=== PATIENT | male | born 1975 | race Caucasian/White ===

== ENCOUNTER 2016-09-15 08:55 | Emergency (ER) | payer SELFPAY ==
[~2016-09-15] VITALS: Ht 177.8 cm; Wt 90.0 kg
[~2016-09-15 08:55] MED LIST: AMLO10TA2 PO; BACT800T5 PO; GABA300C5 PO; GLUC1000 PO; LISI-515 PO; OMEP20TA PO; VENTAER INH; VITA250T25 PO
[2016-09-15 09:11] VITALS: BP 145/94; PULSE 78; RESP 18; TEMP 98.5; O2SAT 99
--- NOTE | 2016-09-16 16:28 | EKG ---
Date Performed: 09/15/2016 Time Performed: 08:56:42 PTAGE: 41 years EKG: Sinus rhythm Since previous tracing, no significant change noted Normal ECG PREVIOUS TRACING : 04/26/2016 05.13 DOCTOR: Marvin Quinonez Interpretating Date/Time 09/16/2016 16:27:08
== END 2016-09-15 09:34 | disposition left against medical advice (07) ==
LOC: PHED 08:55
DX: R68.89 Other general symptoms and signs (principal)
CPT/HCPCS: 93005; 99281

== ENCOUNTER 2017-08-04 10:05 | Emergency (ER) | payer OTHER ==
[~2017-08-04] VITALS: Ht 177.8 cm; Wt 93.0 kg
[~2017-08-04 10:05] MED LIST changes: -OMEP20TA PO; +OMEP20TA93 PO
[2017-08-04 10:11] VITALS: BP 185/102; PULSE 107; RESP 16; TEMP 98.4; O2SAT 95
[2017-08-04 10:17] VITALS: BP 185/102; PULSE 107; RESP 16; TEMP 98.4; O2SAT 95
[2017-08-04] MEDS ORDERED: TRAM50TA PO (11:28)
[2017-08-04] MEDS ORDERED: IBUP1TAB7 PO (11:28)
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
== END 2017-08-04 11:37 | disposition home or self-care (01) ==
LOC: PHEFT 10:05
DX: S42.92XD Fracture of left shoulder girdle, part unspecified, subsequent encounter for fracture with routine healing (principal); J45.909 Unspecified asthma, uncomplicated; E78.00 Pure hypercholesterolemia, unspecified; E11.9 Type 2 diabetes mellitus without complications; I10 Essential (primary) hypertension; F17.210 Nicotine dependence, cigarettes, uncomplicated; V89.2XXA Person injured in unspecified motor-vehicle accident, traffic, initial encounter
CPT/HCPCS: 99283

== ENCOUNTER 2017-09-04 10:33 | Emergency (ER) | payer MEDICAID ==
[~2017-09-04] VITALS: Ht 177.8 cm; Wt 91.0 kg
[~2017-09-04 10:33] MED LIST changes: -AMLO10TA2 PO; -BACT800T5 PO; -GABA300C5 PO; -GLUC1000 PO; +IBUP1TAB7 PO; -LISI-515 PO; -OMEP20TA93 PO; +TRAM50TA PO; -VENTAER INH; -VITA250T25 PO
[2017-09-04 10:35] VITALS: BP 187/115; PULSE 120; RESP 16; TEMP 98.3; O2SAT 96
[2017-09-04] MEDS ORDERED: SODIUM CHLOR 0.9% 1000 ML INJ 1,000 ML IV SCH (10:45)
[2017-09-04] MEDS ORDERED: MORPHINE SULFATE 4 MG/ML INJ IV PUSH ONE (10:45)
[2017-09-04] MEDS ORDERED: SODIUM CHLORIDE 0.9% FLUSH 10 ML FLUSH IV FLUSH PRN (10:45)
[2017-09-04] MEDS ORDERED: ONDANSETRON HCL 4 MG/2 ML VIAL IVP ONE (10:45)
[2017-09-04] MEDS ORDERED: FAMOTIDINE 20 MG/2 ML VIAL IV PUSH ONE (10:45)
--- NOTE | 2017-09-04 10:50 | PD ---
HPI Chief Complaint: Abdominal Pain Time Seen by Provider: 10:40 Travel History International Travel<30 days: No Contact w/Intl Traveler<30days: No Traveled to known affect area: No History of Present Illness HPI The patient is a 42-year-old male who presents emergency department for abdominal pain of 3 days' duration. The abdominal pain is located across the upper aspect of the abdomen, nonradiating, and associated nausea, vomiting, and loose stool. He denies any fever. He does have a history of recent alcohol abuse by drinking several cases of beer per day, last drink of alcohol was this morning. He denies any previous abdominal surgeries. He denies any history pancreatitis, cholelithiasis, or biliary colic. He denies any associated dysuria, frequency, urgency, or hematuria. He has been taking Percocet recently for left shoulder pain, recently had a CT the shoulder performed and is being followed by the orthopedist, Dr. Gold, for fracture shoulder. He is not currently wearing a sling. Symptoms are moderate. Possibly exacerbated by drinking alcohol. There are no current alleviating factors. PFSH Past Medical History Hx Anticoagulant Therapy: No Asthma: Yes (childhood) Cancer: No Cardiovascular Problems: Yes (HTN) High Cholesterol: Yes Congestive Heart Failure: No Coronary Artery Disease: No Diabetes: Yes Diminished Hearing: No Endocrine: Yes Gastrointestinal Disorders: Yes GERD: Yes Genitourinary: No Hypertension: Yes Immune Disorder: No Musculoskeletal: No Neurologic: Yes Psychiatric: No Reproductive: No Respiratory: Yes Immunizations Current: Yes Migraines: Yes Past Surgical History Other Surgery: No Social History Alcohol Use: Yes (6 PACK DAILY) Tobacco Use: Yes (2 ppd) Substance Use: Yes (MARIJUANA) Allergies-Medications (Allergen,Severity, Reaction): Coded Allergies: No Known Allergies (Verified Adverse Reaction, Unknown, 09/04/17) Reported Meds & Prescriptions Reported Meds & Active Scripts Active Ibuprofen 800 Mg Tab 800 Mg PO TID PRN Tramadol (Tramadol HCl) 50 Mg Tab 50 Mg PO Q6H PRN Review of Systems Except as stated in HPI: all other systems reviewed are Neg General / Constitutional: No: Fever Cardiovascular: No: Chest Pain or Discomfort Respiratory: No: Shortness of Breath Gastrointestinal: Positive: Nausea, Vomiting, Diarrhea, Abdominal Pain Genitourinary: No: Urgency, Frequency, Dysuria, Hematuria Musculoskeletal: Positive: Pain (left shoulder pain, known history of fracture) Psychiatric: Positive: Substance Abuse (recent alcohol abuse) Physical Exam Narrative GENERAL: Awake, alert, pleasant 42-year-old male who appears his stated age and is in no acute respiratory distress. SKIN: Focused skin assessment warm/dry. HEAD: Atraumatic. Normocephalic. EYES: Pupils equal and round. Mild injection bilaterally. ENT: No nasal bleeding or discharge. Breath smells of alcohol. NECK: Trachea midline. No JVD. CARDIOVASCULAR: Regular, tachycardic with a heart rate 110. RESPIRATORY: No accessory muscle use. Clear to auscultation. Breath sounds equal bilaterally. GASTROINTESTINAL: Abdomen soft, enlarged hepatic border. Tender in the upper quadrants bilaterally. No guarding or rigidity. MUSCULOSKELETAL: No obvious deformities. No clubbing. No cyanosis. No edema. NEUROLOGICAL: Awake and alert. No obvious cranial nerve deficits. Motor grossly within normal limits. Normal speech. PSYCHIATRIC: Appropriate mood and affect; insight and judgment normal. Data Data Last Documented VS Vital Signs Date Time Temp Pulse Resp B/P (MAP) Pulse Ox O2 Delivery O2 Flow Rate FiO2 09/04/17 13:00 100 147/85 (105) 97 09/04/17 10:35 98.3 16 Orders Orders Complete Blood Count With Diff (09/04/17 10:45) Comprehensive Metabolic Panel (09/04/17 10:45) Lipase (09/04/17 10:45) Lactic Acid (09/04/17 10:45) Iv Access Insert/Monitor (09/04/17 10:45) Ecg Monitoring (09/04/17 10:45) Oximetry (09/04/17 10:45) Morphine Inj (Morphine Inj) (09/04/17 10:45) Ondansetron Inj (Zofran Inj) (09/04/17 10:45) Sodium Chlor 0.9% 1000 Ml Inj (Ns 1000 M (09/04/17 10:45) Sodium Chloride 0.9% Flush (Ns Flush) (09/04/17 10:45) Famotidine Inj (Pepcid Inj) (09/04/17 10:45) Alcohol (Ethanol) (09/04/17 10:47) Sodium Chlor 0.9% 1000 Ml Inj (Ns 1000 M (09/04/17 11:30) Ct Abd/Pel W/O Iv Contrast (09/04/17 ) Labs Laboratory Tests Test 09/04/17 11:07 White Blood Count 16.5 TH/MM3 Red Blood Count 5.84 MIL/MM3 Hemoglobin 17.9 GM/DL Hematocrit 53.2 % Mean Corpuscular Volume 91.0 FL Mean Corpuscular Hemoglobin 30.6 PG Mean Corpuscular Hemoglobin Concent 33.6 % Red Cell Distribution Width 12.9 % Platelet Count 185 TH/MM3 Mean Platelet Volume 9.1 FL Neutrophils (%) (Auto) 80.9 % Lymphocytes (%) (Auto) 11.2 % Monocytes (%) (Auto) 6.5 % Eosinophils (%) (Auto) 0.1 % Basophils (%) (Auto) 1.3 % Neutrophils # (Auto) 13.3 TH/MM3 Lymphocytes # (Auto) 1.9 TH/MM3 Monocytes # (Auto) 1.1 TH/MM3 Eosinophils # (Auto) 0.0 TH/MM3 Basophils # (Auto) 0.2 TH/MM3 CBC Comment DIFF FINAL Differential Comment Blood Urea Nitrogen 8 MG/DL Creatinine 0.94 MG/DL Random Glucose 135 MG/DL Total Protein 8.6 GM/DL Albumin 4.1 GM/DL Calcium Level 9.3 MG/DL Alkaline Phosphatase 142 U/L Aspartate Amino Transf (AST/SGOT) 37 U/L Alanine Aminotransferase (ALT/SGPT) 74 U/L Total Bilirubin 0.7 MG/DL Sodium Level 136 MEQ/L Potassium Level 3.6 MEQ/L Chloride Level 100 MEQ/L Carbon Dioxide Level 23.2 MEQ/L Anion Gap 13 MEQ/L Estimat Glomerular Filtration Rate 89 ML/MIN Lactic Acid Level 2.3 mmol/L Lipase 122 U/L Ethyl Alcohol Level 10 MG/DL [facility] Medical Decision Making Medical Screen Exam Complete: Yes Emergency Medical Condition: Yes Medical Record Reviewed: Yes Interpretation(s) Laboratory Tests Test 09/04/17 11:07 White Blood Count 16.5 TH/MM3 Red Blood Count 5.84 MIL/MM3 Hemoglobin 17.9 GM/DL Hematocrit 53.2 % Mean Corpuscular Volume 91.0 FL Mean Corpuscular Hemoglobin 30.6 PG Mean Corpuscular Hemoglobin Concent 33.6 % Red Cell Distribution Width 12.9 % Platelet Count 185 TH/MM3 Mean Platelet Volume 9.1 FL Neutrophils (%) (Auto) 80.9 % Lymphocytes (%) (Auto) 11.2 % Monocytes (%) (Auto) 6.5 % Eosinophils (%) (Auto) 0.1 % Basophils (%) (Auto) 1.3 % Neutrophils # (Auto) 13.3 TH/MM3 Lymphocytes # (Auto) 1.9 TH/MM3 Monocytes # (Auto) 1.1 TH/MM3 Eosinophils # (Auto) 0.0 TH/MM3 Basophils # (Auto) 0.2 TH/MM3 CBC Comment DIFF FINAL Differential Comment Blood Urea Nitrogen 8 MG/DL Creatinine 0.94 MG/DL Random Glucose 135 MG/DL Total Protein 8.6 GM/DL Albumin 4.1 GM/DL Calcium Level 9.3 MG/DL Alkaline Phosphatase 142 U/L Aspartate Amino Transf (AST/SGOT) 37 U/L Alanine Aminotransferase (ALT/SGPT) 74 U/L Total Bilirubin 0.7 MG/DL Sodium Level 136 MEQ/L Potassium Level 3.6 MEQ/L Chloride Level 100 MEQ/L Carbon Dioxide Level 23.2 MEQ/L Anion Gap 13 MEQ/L Estimat Glomerular Filtration Rate 89 ML/MIN Lactic Acid Level 2.3 mmol/L Lipase 122 U/L Ethyl Alcohol Level 10 MG/DL Last Impressions Abdomen/Pelvis CT 09/04/17 0000 Signed Impressions: Service Date/Time: Monday, September 04, 2017 12:27 - CONCLUSION: 1. Mild hepatic steatosis. 2. Small scattered lymph nodes in the upper abdomen, mesentery and retroperitoneum, likely benign. 3. No acute inflammatory process. Tesfaye Nunes MD Differential Diagnosis Differential diagnosis includes pancreatitis, gastritis, alcoholic gastritis, hepatitis, biliary colic, choledocholithiasis, viral gastroenteritis. Narrative Course IV was established, labs are drawn and sent, and the patient was placed on cardiac telemetry monitoring and continuous pulse oximetry monitoring. Lipase and lactic acid were sent to lab. The patient was administered morphine, Zofran , Pepcid, and IV fluids. Labs reveal elevated hemoglobin and white count, most likely hemoconcentration secondary to dehydration. Lipase is unremarkable, patient continues have pain, therefore, CT the abdomen and pelvis was performed. CT is negative except for nonspecific lymphadenopathy. Patient most likely has alcoholic gastritis. Patient is reevaluated, symptoms had improved. However, he has been in withdrawal in the past, patient was provided Librium and will be discharged home on Librium taper dose. He will also be placed on Zantac twice a day. He is advised to abstain from alcohol. Diagnosis Primary Impression: Alcoholic gastritis Qualified Codes: K29.20 - Alcoholic gastritis without bleeding Additional Impression: Alcohol abuse Patient Instructions: General Instructions Additional Instructions: Medication as directed. Stop alcohol. Librium as directed. Please provide a patient a copy of his CT results and lab results at discharge. Follow-up with her primary physician. Return if symptoms worsen or progress. Med/Other Pt SpecificInfo: Prescription(s) given Scripts Chlordiazepoxide HCl (Chlordiazepoxide HCl) 25 Mg Capsule 1 TAB PO DIRECTED for Withdrawals, #20 Prov: Brendan Leyva MD 09/04/17 Ranitidine (Zantac 150 Maximum Strength) 150 Mg Tab 150 MG PO BID for 14 Days, #28 TAB Prov: Brendan Leyva MD 09/04/17 Disposition: 01 DISCHARGE HOME Condition: Stable Brendan Leyva MD Sep 04, 2017 10:50
[2017-09-04 11:09] VITALS: O2SAT 97
[2017-09-04 11:20] LABS: AUTOMATED NEUTROPHIL # 13.3 TH/MM3 (1.8-7.7); BASOPHIL # 0.2 TH/MM3 (0-0.2); BASOPHIL % 1.3 % (0.0-2.0); EOSINOPHIL % 0.1 % (0.0-4.0); HEMATOCRIT 53.2 % (39.0-51.0); HEMOGLOBIN 17.9 GM/DL (13.0-17.0); LYMPH % 11.2 % (9.0-44.0); LYMPHOCYTE # 1.9 TH/MM3 (1.0-4.8); MEAN CORPUSCULAR HEMOGLOBIN 30.6 PG (27.0-34.0); MEAN CORPUSCULAR HGB CONC 33.6 % (32.0-36.0); MEAN PLATELET VOLUME 9.1 FL (7.0-11.0); MONO % 6.5 % (0.0-8.0); MONOCYTE # 1.1 TH/MM3 (0-0.9); NEUT % 80.9 % (16.0-70.0); PLATELET COUNT 185 TH/MM3 (150-450); RED BLOOD COUNT 5.84 MIL/MM3 (4.50-5.90); RED CELL DISTRIBUTION WIDTH 12.9 % (11.6-17.2); WHITE BLOOD COUNT 16.5 TH/MM3 (4.0-11.0)
[2017-09-04 11:23] LABS: CHLORIDE 100 MEQ/L (98-107); SODIUM (NA) 136 MEQ/L (136-145)
[2017-09-04 11:27] LABS: ALBUMIN 4.1 GM/DL (3.4-5.0); BICARBONATE 23.2 MEQ/L (21.0-32.0); CALCIUM 9.3 MG/DL (8.5-10.1); GLUCOSE,RANDOM 135 MG/DL (74-106)
[2017-09-04 11:28] LABS: BLOOD UREA NITROGEN 8 MG/DL (7-18)
[2017-09-04 11:30] LABS: ALT (GPT) 74 U/L (12-78); AST (GOT) 37 U/L (15-37)
[2017-09-04] MEDS ORDERED: SODIUM CHLOR 0.9% 1000 ML INJ 1,000 ML IV ONE (11:30)
[2017-09-04 11:31] LABS: CREATININE 0.94 MG/DL (0.60-1.30); GLOMERULAR FILTRATION RATE 89 ML/MIN (>89)
[2017-09-04 11:32] LABS: TOTAL BILIRUBIN ADULT 0.7 MG/DL (0.2-1.0); TOTAL PROTEIN 8.6 GM/DL (6.4-8.2)
[2017-09-04 11:33] LABS: ALKALINE PHOSPHATASE 142 U/L (45-117)
--- NOTE | 2017-09-04 12:44 | RADRPT ---
EXAM DATE/TIME: 09/04/2017 12:27 [facility] COMPARISON: No previous studies available for comparison. INDICATIONS : Non specific abdominal pain. ORAL CONTRAST: No oral contrast ingested. RADIATION DOSE: 18.06 CTDIvol (mGy) MEDICAL HISTORY : Hypertension. Pancreatitis. Gastroesophageal reflux disease.Diabetes. SURGICAL HISTORY : None. ENCOUNTER: Initial ACUITY: 4 - 6 days PAIN SCALE: 6/10 LOCATION: pelvis abdomen TECHNIQUE: Volumetric scanning of the abdomen and pelvis was performed. Using automated exposure control and ad justment of the mA and/or kV according to patient size, radiation dose was kept as low as reasonably achievable to obtain optimal diagnostic quality images. DICOM format image data is available electro nically for review and comparison. FINDINGS: LOWER LUNGS: The visualized lower lungs are clear. LIVER: Diffuse low-density without lesion. There is no dilation of the biliary tree. No calcified gallston es. SPLEEN: Normal size without lesion. PANCREAS: Within normal limits. KIDNEYS: Normal in size and shape. There is no mass, stone, or hydronephrosis. ADRENAL GLANDS: Within normal limits. VASCULAR: There is no aortic aneurysm. BOWEL/MESENTERY: The stomach, small bowel, and colon demonstrate no acute abnormality. There is no free intraperitone al air or fluid. Multiple small mesenteric lymph nodes including lymph nodes upper abdomen. ABDOMINAL WALL: Within normal limits. RETROPERITONEUM: There are small scattered retroperitoneal lymph nodes.. BLADDER: No wall thickening or mass. REPRODUCTIVE: Within normal limits. INGUINAL: There is no lymphadenopathy or hernia. MUSCULOSKELETAL: Degenerative changes lumbosacral junction. CONCLUSION: 1. Mild hepatic steatosis. 2. Small scattered lymph nodes in the upper abdomen, mesentery and retroperitoneum, likely benign. 3. No acute inflammatory process. Tesfaye Nunes MD on September 04, 2017 at 12:40 Board Certified Radiologist. This report was verified electronically.
[2017-09-04 13:00] VITALS: BP 147/85; PULSE 100; O2SAT 97
[2017-09-04] MEDS ORDERED: ZANTTAB PO (13:08)
[2017-09-04] MEDS ORDERED: CHLO25CA9 PO (13:08)
[2017-09-04] MEDS ORDERED: chlordiazePOXIDE 25 MG CAP PO ONE (13:30)
== END 2017-09-04 13:50 | disposition home or self-care (01) ==
LOC: PHED 10:33
DX: K29.20 Alcoholic gastritis without bleeding (principal); F10.10 Alcohol abuse, uncomplicated; R11.2 Nausea with vomiting, unspecified; I10 Essential (primary) hypertension; E11.9 Type 2 diabetes mellitus without complications; K21.9 Gastro-esophageal reflux disease without esophagitis; F17.210 Nicotine dependence, cigarettes, uncomplicated; F12.90 Cannabis use, unspecified, uncomplicated
CPT/HCPCS: 74176; 80053; 80307; 83605; 83690; 85025; 96361; 96374; 96375; 99284; J2270; J2405; J7030